=== PATIENT | male | born 1970 | race Caucasian/White ===

== ENCOUNTER 2018-05-16 12:52 | Observation (INO) | payer SELFPAY ==
[~2018-05-16 12:52] MED LIST: DEXAMETHASONE SOD PHOSPHATE INJ 4 MG/1 ML VIAL ONE; GLYCOPYRROLATE 1 MG/5 ML SYRINGE ONE; NEOSTIGMINE METHYLSULFATE 10 MG/10 ML VIAL ONE; ONDANSETRON HCL INJ/PF 4 MG/2 ML SDV ONE; ROCURONIUM BROMIDE INJ 50 MG/5 ML VIAL IV ONE; SUCCINYLCHOLINE CHLORIDE INJ 200 MG/10 ML VIAL ONE
--- NOTE | 2018-05-16 13:38 | EKG REPORT ---
SEVERITY:- OTHERWISE NORMAL ECG - SINUS RHYTHM VENTRICULAR PREMATURE COMPLEX : Confirmed by: Isauro Reddy MD 16-May-2018 13:37:22
[2018-05-16] MEDS ORDERED: NORMAL SALINE 1000 ML 1,000 ML IV ONE ×2 (13:44→14:49)
[2018-05-16 13:47] LABS: ABSOLUTE BASOPHILS # (AUTO) 0.1 10^3/uL (0.0-0.2); ABSOLUTE EOSINOPHILS # (AUTO) 0.3 10^3/uL (0.0-0.6); ABSOLUTE LYMPHOCYTES (AUTO) 2.3 10^3/uL (0.5-4.7); ABSOLUTE MONOCYTES (AUTO) 0.6 10^3/uL (0.1-1.4); BASOPHILS % (AUTO) 0.7 % (0-2); EOSINOPHILS % (AUTO) 2.2 % (0-6); HEMATOCRIT 41.5 % (37.9-51.0); HEMOGLOBIN 14.7 g/dL (13.5-17.0); LYMPHOCYTES % (AUTO) 18.4 % (13-45); MEAN CORPUSCULAR HEMOGLOBIN 34.6 pg (27.0-33.4); MEAN CORPUSCULAR HGB CONC 35.5 g/dL (32.0-36.0); MEAN CORPUSCULAR VOLUME 98 fl (80-97); MONOCYTES % (AUTO) 5.1 % (3-13); PLATELET COUNT 296 10^3/uL (150-450); RED BLOOD COUNT 4.26 10^6/uL (4.35-5.55); RED CELL DISTRIBUTION WIDTH 13.4 % (11.5-14.0); SEGMENTED NEUTROPHILS % (AUTO) 73.6 % (42-78); TOTAL CELLS COUNTED % (AUTO) 100 %; WHITE BLOOD COUNT 12.3 10^3/uL (4.0-10.5)
[2018-05-16 14:08] LABS: ALANINE AMINOTRANSFERASE 142 U/L (21-72); ALBUMIN 4.8 g/dL (3.5-5.0); ALKALINE PHOSPHATASE 145 U/L (38-126); ANION GAP 9 (5-19); ASPARTATE AMINO TRANSFERASE 79 U/L (17-59); BILIRUBIN,DIRECT 0.3 mg/dL (0.0-0.4); BILIRUBIN,TOTAL 0.7 mg/dL (0.2-1.3); BLOOD UREA NITROGEN 19 mg/dL (7-20); CALCIUM 10.2 mg/dL (8.4-10.2); CARBON DIOXIDE 32 mmol/L (22-30); CHLORIDE 95 mmol/L (98-107); CREATINE KINASE 695 U/L (55-170); GLUCOSE 123 mg/dL (75-110); LIPASE 48.5 U/L (23-300); POTASSIUM 3.8 mmol/L (3.6-5.0); SODIUM 136.4 mmol/L (137-145); TOTAL PROTEIN 7.6 g/dL (6.3-8.2)
[2018-05-16 14:15] LABS: APPEARANCE,URINE CLEAR; BILIRUBIN,URINE NEGATIVE (NEGATIVE); COLOR,URINE YELLOW; GLUCOSE, URINE NEGATIVE (NEGATIVE); KETONES,URINE NEGATIVE (NEGATIVE); LEUKOCYTE ESTERASE,URINE NEGATIVE (NEGATIVE); NITRITE,URINE NEGATIVE (NEGATIVE); PROTEIN,URINE NEGATIVE (NEGATIVE); URINE SPECIFIC GRAVITY 1.018; UROBILINOGEN,URINE NEGATIVE mg/dL (<2.0)
[2018-05-16 14:20] LABS: CREATINE KINASE MB 6.87 ng/mL (<4.55)
[2018-05-16 14:22] LABS: TROPONIN I < 0.012 ng/mL
--- NOTE | 2018-05-16 14:22 | RADIOLOGY REPORT (SQ) ---
EXAM DESCRIPTION: CHEST 2 VIEWS COMPLETED DATE/TIME: 05/16/2018 2:13 pm REASON FOR STUDY: chest pain COMPARISON: 10/15/2011. EXAM PARAMETERS: NUMBER OF VIEWS: two views TECHNIQUE: Digital Frontal and Lateral radiographic views of the chest acquired. RADIATION DOSE: NA LIMITATIONS: none FINDINGS: LUNGS AND PLEURA: No opacities, masses or pneumothorax. No pleural effusion. MEDIASTINUM AND HILAR STRUCTURES: No masses or contour abnormalities. HEART AND VASCULAR STRUCTURES: Heart normal size. No evidence for failure. BONES: No acute findings. HARDWARE: None in the chest. OTHER: No other significant finding. IMPRESSION: NO ACUTE RADIOGRAPHIC FINDING IN THE CHEST. TECHNICAL DOCUMENTATION: JOB ID: [id number] [employer]- All Rights Reserved Reading location - IP/workstation name: [email or web address]
[2018-05-16 14:33] LABS: URINE AMPHETAMINES SCREEN NEGATIVE; URINE BARBITURATES SCREEN NEGATIVE; URINE BENZODIAZEPINES SCREEN UNCONFIRMED POSITIVE; URINE COCAINE SCREEN NEGATIVE; URINE MARIJUANA (THC) SCREEN NEGATIVE; URINE METHADONE SCREEN NEGATIVE; URINE PHENCYCLIDINE SCREEN NEGATIVE
[2018-05-16] MEDS ORDERED: ONDANSETRON HCL INJ/PF 4 MG/2 ML SDV IV ONE (15:13)
--- NOTE | 2018-05-16 17:27 | RADIOLOGY REPORT (SQ) ---
EXAM DESCRIPTION: U/S ABDOMEN LIMITED W/O DOP COMPLETED DATE/TIME: 05/16/2018 5:15 pm REASON FOR STUDY: ruq epi pain elevated lfts COMPARISON: Right upper quadrant ultrasound 09/01/2008 CT abdomen pelvis 09/02/2008 TECHNIQUE: Dynamic and static grayscale images acquired of the abdomen and recorded on PACS. Additio nal selected color Doppler and spectral images recorded. LIMITATIONS: Body habitus, bowel gas FINDINGS: PANCREAS: Not visualized due to midline bowel gas LIVER: Echogenic from diffuse fatty infiltration of the liver. Difficult to penetrate with the ultra sound energy from fatty infiltration. Focal sparing around the gallbladder fossa LIVER VASCULATURE: Normal directional flow of the main portal vein and hepatic veins. GALLBLADDER: Multiple stones are present. No gallbladder wall thickening or pericholecystic fluid. Negative sonographic Abdi's sign ULTRASOUND-DETECTED ABDI'S SIGN: Negative. INTRAHEPATIC DUCTS AND COMMON DUCT: CBD and intrahepatic ducts normal caliber. No filling defects. INFERIOR VENA CAVA: Not well seen AORTA: Not well seen RIGHT KIDNEY: Normal size. Normal echogenicity. No solid or suspicious masses. No hydronephrosis. No calcifications. PERITONEAL AND RIGHT PLEURAL SPACE: No ascites or effusions. OTHER: No other significant findings. IMPRESSION: Gallstones in the gallbladder, without gallbladder wall thickening or pericholecystic fl uid. Negative sonographic Abdi's sign Fatty liver with focal sparing at the gallbladder fossa Nonvisualization of the pancreas abdominal aorta and vena cava related to midline bowel gas TECHNICAL DOCUMENTATION: JOB ID: [id number] [email or web address]- All Rights Reserved Reading location - IP/workstation name: [email or web address]
--- NOTE | 2018-05-16 18:05 | ER Document Report ---
ED General - General Chief Complaint: Chest Pain Stated Complaint: CHEST PAIN Time Seen by Provider: 05/16/18 13:02 TRAVEL OUTSIDE OF THE [place] IN LAST 30 DAYS: No - HPI Patient complains to provider of: Chest pain epigastric pain nausea Notes: Patient coming in for worsening chest pain epigastric nausea. Patient states this morning had a egg omelette from [employer] and doing felt slightly nauseous continued to feel bad developed into chest pain never came to the ER for further evaluation. Patient denies any past medical history denies any allergies to medications. Patient denies any trauma. Patient denies any diarrhea or fever. Patient otherwise risk of a upon my evaluation. - Related Data Allergies/Adverse Reactions: No Known Allergies Allergy (Unverified 05/16/18 17:27) Past Medical History - Social History Smoking Status: Current Every Day Smoker Patient has suicidal ideation: No Patient has homicidal ideation: No Pulmonary Medical History: Reports: Hx COPD Renal/ Medical History: Denies: Hx Peritoneal Dialysis - Immunizations Hx Diphtheria, Pertussis, Tetanus Vaccination: Yes Review of Systems - Review of Systems Constitutional: No symptoms reported EENT: No symptoms reported Cardiovascular: Chest pain Respiratory: No symptoms reported Gastrointestinal: Abdominal pain Genitourinary: No symptoms reported Male Genitourinary: No symptoms reported Musculoskeletal: No symptoms reported Skin: No symptoms reported Hematologic/Lymphatic: No symptoms reported Neurological/Psychological: No symptoms reported -: Yes All other systems reviewed and negative Physical Exam - Vital signs Interpretation: Normal - General General appearance: Appears well, Alert - HEENT Head: Normocephalic, Atraumatic Eyes: Normal Pupils: PERRL - Respiratory Respiratory status: No respiratory distress Chest status: Nontender Breath sounds: Normal Chest palpation: Normal - Cardiovascular Rhythm: Regular Heart sounds: Normal auscultation Murmur: No - Abdominal Inspection: Obese Distension: No distension Bowel sounds: Normal Tenderness: Tender - Epigastric tenderness some right upper quadrant tenderness Organomegaly: No organomegaly - Back Back: Normal, Nontender - Extremities General upper extremity: Normal inspection, Nontender, Normal color, Normal ROM, Normal temperature General lower extremity: Normal inspection, Nontender, Normal color, Normal ROM, Normal temperature, Normal weight bearing. No: Geena's sign - Neurological Neuro grossly intact: Yes Cognition: Normal Orientation: AAOx4 Raman Coma Scale Eye Opening: Spontaneous Raman Coma Scale Verbal: Oriented [place] Coma Scale Motor: Obeys Commands [place] Coma Scale Total: 15 Speech: Normal Motor strength normal: LUE, RUE, LLE, RLE Sensory: Normal - Psychological Associated symptoms: Normal affect, Normal mood - Skin Skin Temperature: Warm Skin Moisture: Dry Skin Color: Normal Course - Re-evaluation Re-evalutation: 05/16/18 18:06 Patient with elevation of LFTs ultrasound was performed showing gallstones will have surgery come and evaluate the patient. 05/16/18 18:13 Discussed with the surgeon will cancel the CT scan at this time will admit the patient for further evaluation. - Laboratory Result Diagrams: 05/16/18 13:31 05/16/18 13:31 Laboratory results interpreted by me: 05/16/18 05/16/18 05/16/18 13:31 13:31 13:31 WBC 12.3 H RBC 4.26 L MCV 98 H MCH 34.6 H Absolute Neutrophils 9.0 H Sodium 136.4 L Chloride 95 L Carbon Dioxide 32 H Glucose 123 H AST 79 H ALT 142 H Alkaline Phosphatase 145 H Creatine Kinase 695 H CK-MB (CK-2) 6.87 H Discharge - Discharge Clinical Impression: Symptomatic cholelithiasis Condition: Good Disposition: ADMITTED OBSERVATION Admitting Provider: Surgicalist - [facility] Admitted: OR
[2018-05-16] MEDS ORDERED: AMPICILLIN SOD/SULBACTAM 3 GM VIAL IV ONE (18:14)
--- NOTE | 2018-05-16 18:17 | PDOC H&P ---
History of Present Illness Patient complains of: Abdominal pain History of Present Illness: JESSICA GLOVER is a 47 year old male Who presents to the emergency department complaint of acute onset abdominal pain approximately 11:00 today. Pain was unrelenting, and he was brought in by ground rescue, given nitroglycerin without relief. He was evaluated in the emergency department where he is found to have gallstones by ultrasonography, no common duct dilation. He received IV fluids, and a CT scan of the abdomen was about to be performed. Surgery was consulted, patient evaluated, and advised admission. Admits to having several previous episodes of abdominal pain, postprandial gallbladder disease in the patient's mother Past Medical History Past Medical History: Hypertension Pulmonary Medical History: Reports: Chronic Obstructive Pulmonary Disease (COPD) Past Surgical History Past Surgical History: Reports: None Social History Smoking Status: Current Every Day Smoker Frequency of Alcohol Use: Occasional Family History Parental Family History Reviewed: Yes Children Family History Reviewed: Yes Sibling(s) Family History Reviewed.: Yes Medication/Allergy Allergies/Adverse Reactions: No Known Allergies Allergy (Unverified 05/16/18 17:27) Review of Systems Eyes: ABSENT: visual disturbances Ears: ABSENT: hearing changes Cardiovascular: ABSENT: chest pain, dyspnea on exertion, edema, orthropnea, palpitations Respiratory: ABSENT: cough, hemoptysis Gastrointestinal: PRESENT: as per HPI, other - Patient denies diarrhea or constipation. Integumentary: ABSENT: rash, wounds Neurological: ABSENT: abnormal gait, abnormal speech, confusion, dizziness, focal weakness, syncope Psychiatric: ABSENT: anxiety, depression, homidical ideation, suicidal ideation Physical Exam Vital Signs: Intake & Output 05/15/18 05/16/18 05/17/18 06:59 06:59 06:59 Intake Total 1000 Balance 1000 Weight 111.584 kg General appearance: PRESENT: no acute distress Head exam: PRESENT: atraumatic Eye exam: PRESENT: EOMI Mouth exam: PRESENT: dry mucosa Neck exam: PRESENT: full ROM Respiratory exam: PRESENT: rhonchi Cardiovascular exam: PRESENT: RRR Pulses: PRESENT: normal carotid pulses, normal radial pulses, normal femoral pulses GI/Abdominal exam: PRESENT: other - Soft, but tender in the right upper quadrant to moderate palpation. Moderate distention. Gentrourinary exam: PRESENT: other - No groin hernias Extremities exam: PRESENT: full ROM Musculoskeletal exam: PRESENT: ambulatory Neurological exam: PRESENT: awake, oriented to person, oriented to place, oriented to time, oriented to situation Psychiatric exam: PRESENT: appropriate affect Results Laboratory Results: 05/16/18 13:31 05/16/18 13:31 05/16/18 05/16/18 05/16/18 13:31 13:31 13:49 WBC 12.3 H RBC 4.26 L Hgb 14.7 Hct 41.5 MCV 98 H MCH 34.6 H MCHC 35.5 RDW 13.4 Plt Count 296 Seg Neutrophils % 73.6 Lymphocytes % 18.4 Monocytes % 5.1 Eosinophils % 2.2 Basophils % 0.7 Absolute Neutrophils 9.0 H Absolute Lymphocytes 2.3 Absolute Monocytes 0.6 Absolute Eosinophils 0.3 Absolute Basophils 0.1 Sodium 136.4 L Potassium 3.8 Chloride 95 L Carbon Dioxide 32 H Anion Gap 9 BUN 19 Creatinine 0.95 Est GFR ( Amer) > 60 Est GFR (Non-Af Amer) > 60 Glucose 123 H Calcium 10.2 Total Bilirubin 0.7 AST 79 H ALT 142 H Alkaline Phosphatase 145 H Total Protein 7.6 Albumin 4.8 Lipase 48.5 Urine Color YELLOW Urine Appearance CLEAR Urine pH 6.0 Ur Specific [place] 1.018 Urine Protein NEGATIVE Urine Glucose (UA) NEGATIVE Urine Ketones NEGATIVE Urine Blood NEGATIVE Urine Nitrite NEGATIVE Ur Leukocyte Esterase NEGATIVE Urine WBC (Auto) 1 Urine RBC (Auto) 1 05/16/18 05/16/18 13:31 13:31 Creatine Kinase 695 H CK-MB (CK-2) 6.87 H Troponin I < 0.012 Impressions: Chest X-Ray 05/16/18 00:00 IMPRESSION: NO ACUTE RADIOGRAPHIC FINDING IN THE CHEST. Abdomen Ultrasound 05/16/18 14:48 IMPRESSION: Gallstones in the gallbladder, without gallbladder wall thickening or pericholecystic fluid. Negative sonographic Abdi's sign Fatty liver with focal sparing at the gallbladder fossa Nonvisualization of the pancreas abdominal aorta and vena cava related to midline bowel gas Assessment & Plan - Diagnosis (1) Cholecystitis Is this a current diagnosis for this admission?: Yes Plan: Impression: Acute cholecystitis cholelithiasis in smoker, symptomatic Medications: 1. Admit, IV fluids, n.p.o. 2. Set patient up for interval laparoscopic, possible open cholecystectomy, 1 hour, possible drain, risk benefits and alternatives to the planned procedure explained to patient. Expressed understanding we will proceed. (2) Smoker Is this a current diagnosis for this admission?: Yes (3) Gallstone Is this a current diagnosis for this admission?: Yes - Time Time Spent: 30 to 50 Minutes Critical Time spent with patient: Less than 15 minutes Smoking Cessation Education: 3 to 10 minutes Medications reviewed and adjusted accordingly: Yes Anticipated discharge: Home - Inpatient Certification Based on my medical assessment, after consideration of the patient's comorbidities, presenting symptoms, or acuity I expect that the services needed warrant INPATIENT care.: Yes I certify that my determination is in accordance with my understanding of Medicare's requirements for reasonable and necessary INPATIENT services [42 CFR 412.3e].: Yes Medical Necessity: Need For IV Fluids, Need for Pain Control, Need for IV Anti biotics, Need for Surgery
[2018-05-16] MEDS ORDERED: FENTANYL CITRATE INJ/PF 100 MCG/2 ML AMPUL ONE ×2 (18:20→20:00)
[2018-05-16] MEDS ORDERED: BUPIVACAINE HCL 0.25 % INJ/PF (2.5 MG/1 ML) 30 ML VIAL ONE (18:20)
[2018-05-16] MEDS ORDERED: MORPHINE SULFATE 10 MG/ML INJ ONE (18:21)
[2018-05-16] MEDS ORDERED: PROPOFOL INJ 200 MG/20 ML VIAL IV ONE (18:21)
[2018-05-16] MEDS ORDERED: MIDAZOLAM 2 MG/2 ML INJ ONE (18:21)
[2018-05-16] MEDS ORDERED: FENTANYL CITRATE INJ/PF 100 MCG/2 ML AMPUL IV PRN ×3 (19:21)
[2018-05-16] MEDS ORDERED: MORPHINE SULFATE 10 MG/ML INJ IV PRN (19:21)
[2018-05-16] MEDS ORDERED: DIPHENHYDRAMINE HCL 50 MG/ML VIAL IV PRN (19:21)
[2018-05-16] MEDS ORDERED: MEPERIDINE HCL/PF INJ 25 MG/1 ML DISP.SYRIN IV PRN (19:21)
[2018-05-16] MEDS ORDERED: PROMETHAZINE HCL INJ 25 MG/1 ML VIAL IV PRN ×2 (19:21)
[2018-05-16] MEDS ORDERED: ONDANSETRON HCL INJ/PF 4 MG/2 ML SDV IV PRN ×2 (20:51→20:52)
--- NOTE | 2018-05-16 21:01 | Operative Report ---
Operative Report DATE OF SURGERY: 05/16/18 PREOPERATIVE DIAGNOSIS: Acute cholecystitis with cholelithiasis POSTOPERATIVE DIAGNOSIS: Same with purulent cholecystitis OPERATION: 1. Laparoscopic cholecystectomy. 2. Extremely difficult modifier due to acute inflammation, exposure difficulty. 3. Drain subhepatic space SURGEON: CANDI KAPADIA ANESTHESIA: GA TISSUE REMOVED OR ALTERED: 1 gallbladder fragmented with multiple gallstones COMPLICATIONS: None ESTIMATED BLOOD LOSS: 100 cc INTRAOPERATIVE FINDINGS: See below PROCEDURE: After obtaining informed consent, the patient was taken to the operating room. General Anesthesia was induced; the arms were extended, and the abdomen was exp osed, and prepped and draped in a sterile fashion. Instrumentation was set up for laparoscopic cholecystectomy. Surgical plan and surgical timeout were conducted. A vertical incision was made above the umbilicus, and a verres needle was inserted uneventfully into the peritoneal cavity. Pneumoperitoneum was established. The verres needle was removed and a 5 mm trocar was inserted and a 5 mm flexible laparoscope was inserted. Visualization of the peritoneal cavity confirmed safe uneventful entry. Under direct visualization 3 additional 5 mm ports were established, one in the subxiphoid position and second in the subcostal position. The findings were significant for acutely inflamed, distended gallbladder with a neurologically fused gallbladder to the liver. Multiple photos were taken. The gallbladder was aspirated of approximately 60 cc of thick pale bile. We initially placed spurs on the gallbladder fundus and infundibulum, but because of poor exposure primarily due to the persisting large size of the gallbladder, we felt that a top down approach was indicated. Therefore the graspers were repositioned, and the embryo logically fused gallbladder and liver interface was opened up with the hook cautery. We now proceeded for the next 45 minutes to take down the gallbladder from the fundus down to the infundibulum. The next hour was spent dissecting out the lower t hird of the gallbladder. The gallbladder was actually amputated longterm through the removal from the liver bed with scissors. The cystic artery was identified while taking the gallbladder off of the liver bed. It was clipped twice proximally. [place] use of electrocautery, irrigation and suction was required to facilitate the dissection. We did have good help and we did make steady progress therefore no intent for conversion was entertained. We did place 1/5 port in the subcostal position closer to the epigastric region. This was assisted with liver retraction using the fan, as well as an angulated fan to hold down the omentum. Eventually we got down to the infundibulum of the gallbladder with multiple photos taken. We used hook cautery dissection to clear the remaining fibrotic a ttachments to the shoulder which was quite abrupt between the infundibulum and the cystic duct. Therefore we left a small final of bladder consistent with the gallbladder neck. Once this was all amputated, with the spillage of stones into the subhepatic space, we were able to visualize the remnant 1-1/2 cm segment of gallbladder neck. We now secured the cystic duct-gallbladder neck with 2-0 PDS Endoloop sutures. We took multiple photographs and there was no evidence of leaking from this We now spent another 20 minutes mopping the loose ends by first placing an Endobag to the patient's supraumbilical port site, then retrieving both gallbladder fragments, as well as multiple small stones. The gallbladder, stones and Endobag were brought out in their entirety through the supraumbilical port site incision after opening it slightly with a Brenda clamp. We returned the peritoneal cavity irrigated out with 2 L of saline, manipulating the subhepatic space in the right lobe of the liver to ensure all identifiable stones were extracted from the patient. A large Roberto drain was placed through the subcostal port and secured in position with 2-0 Prolene suture. The tip of the drain ending in the subhepatic space. We returned to the peritoneal cavity check for bleeding, and evidence of bile leak, and there was none. The supraumbilical port site incision was closed with a 0 Vicryl suture; the subcutaneous tissue was then anesthetized with quarter percent Marcaine Sponge and needle counts are correct. 5 mm port wounds closed with 3-0 Vicryl suture, benzoin and Steri-Strips. The patient was extubated, and taken to the recovery room in stable condition. Extremely difficult modifier was because of increased time,, approximately total time 90 minutes, as well as difficulty exposure difficulty with enlarged gallbladder.
[2018-05-16] MEDS ORDERED: KETOROLAC TROMETHAMINE 10 MG TABLET ONE (23:07)
[2018-05-16] MEDS: ACETAMINOPHEN INJ/PF 1000 MG/100 ML SDV IV SCH (23:34)
[2018-05-16] MEDS: KETOROLAC TROMETHAMINE 10 MG TABLET PO PRN (23:43)
[2018-05-17] MEDS: AMPICILLIN SODIUM/SULBACTAM NA 3 GM in NORMAL SALINE 100 ML IV SCH ×2 (02:31→09:34)
[2018-05-17] MEDS ORDERED: ACETAMINOPHEN 1,000 MG/100 ML RTUPB IV ONE (04:45)
[2018-05-17] MEDS: ACETAMINOPHEN INJ/PF 1000 MG/100 ML SDV IV SCH ×2 (05:24→11:32)
[2018-05-17] MEDS: KETOROLAC TROMETHAMINE 10 MG TABLET PO PRN (09:34)
[2018-05-17 09:55] LABS: HEMATOCRIT 39.4 % (37.9-51.0); HEMOGLOBIN 13.7 g/dL (13.5-17.0); MEAN CORPUSCULAR HGB CONC 34.9 g/dL (32.0-36.0); MEAN CORPUSCULAR VOLUME 98 fl (80-97); PLATELET COUNT 245 10^3/uL (150-450); RED BLOOD COUNT 4.04 10^6/uL (4.35-5.55); RED CELL DISTRIBUTION WIDTH 13.5 % (11.5-14.0); WHITE BLOOD COUNT 13.2 10^3/uL (4.0-10.5)
[2018-05-17] MEDS ORDERED: DOCUSATE SODIUM 100 MG CAPSULE PO SCH (10:00)
[2018-05-17 10:21] LABS: ALANINE AMINOTRANSFERASE 168 U/L (21-72); ALBUMIN 3.9 g/dL (3.5-5.0); ALKALINE PHOSPHATASE 111 U/L (38-126); ASPARTATE AMINO TRANSFERASE 111 U/L (17-59); BILIRUBIN,DIRECT 0.4 mg/dL (0.0-0.4); BILIRUBIN,TOTAL 1.2 mg/dL (0.2-1.3); TOTAL PROTEIN 6.2 g/dL (6.3-8.2)
[2018-05-17 12:54] VITALS: BP 111/76
--- NOTE | 2018-05-17 13:44 | PDOC PROGRESS REPORT ---
Subjective Progress Note for:: 05/17/18 Reason For Visit: ACUTE CHOLECYSTITIS AND CHOLELITHIASIS Physical Exam Vital Signs: Temp Pulse Resp BP Pulse Ox 100.3 F 106 H 24 H 111/76 94 05/17/18 12:36 05/17/18 12:36 05/17/18 12:36 05/17/18 12:36 05/17/18 12:36 Intake & Output 05/16/18 05/17/18 05/18/18 06:59 06:59 06:59 Intake Total 5660 1100 Output Total 3450 Balance 2210 1100 Weight 111.6 kg General appearance: PRESENT: morbidly obese Eye exam: PRESENT: EOMI, PERRLA Ear exam: PRESENT: other Mouth exam: PRESENT: moist Teeth exam: PRESENT: other Respiratory exam: PRESENT: clear to auscultation lisa Cardiovascular exam: PRESENT: RRR Pulses: PRESENT: normal radial pulses, normal femoral pulses GI/Abdominal exam: PRESENT: soft - min pain, arti serous Extremities exam: PRESENT: full ROM Musculoskeletal exam: PRESENT: ambulatory Neurological exam: PRESENT: alert, altered, awake Psychiatric exam: PRESENT: appropriate affect Skin exam: PRESENT: dry, intact, warm. ABSENT: cyanosis, rash Results Laboratory Results: 05/17/18 09:18 05/16/18 13:31 05/16/18 05/16/18 05/16/18 13:31 13:31 13:49 WBC 12.3 H RBC 4.26 L Hgb 14.7 Hct 41.5 MCV 98 H MCH 34.6 H MCHC 35.5 RDW 13.4 Plt Count 296 Seg Neutrophils % 73.6 Lymphocytes % 18.4 Monocytes % 5.1 Eosinophils % 2.2 Basophils % 0.7 Absolute Neutrophils 9.0 H Absolute Lymphocytes 2.3 Absolute Monocytes 0.6 Absolute Eosinophils 0.3 Absolute Basophils 0.1 Sodium 136.4 L Potassium 3.8 Chloride 95 L Carbon Dioxide 32 H Anion Gap 9 BUN 19 Creatinine 0.95 Est GFR ( Amer) > 60 Est GFR (Non-Af Amer) > 60 Glucose 123 H Calcium 10.2 Total Bilirubin 0.7 AST 79 H ALT 142 H Alkaline Phosphatase 145 H Total Protein 7.6 Albumin 4.8 Lipase 48.5 Urine Color YELLOW Urine Appearance CLEAR Urine pH 6.0 Ur Specific [place] 1.018 Urine Protein NEGATIVE Urine Glucose (UA) NEGATIVE Urine Ketones NEGATIVE Urine Blood NEGATIVE Urine Nitrite NEGATIVE Ur Leukocyte Esterase NEGATIVE Urine WBC (Auto) 1 Urine RBC (Auto) 1 05/17/18 05/17/18 09:18 09:18 WBC 13.2 H RBC 4.04 L Hgb 13.7 Hct 39.4 MCV 98 H MCH 34.0 H MCHC 34.9 RDW 13.5 Plt Count 245 Seg Neutrophils % Lymphocytes % Monocytes % Eosinophils % Basophils % Absolute Neutrophils Absolute Lymphocytes Absolute Monocytes Absolute Eosinophils Absolute Basophils Sodium Potassium Chloride Carbon Dioxide Anion Gap BUN Creatinine Est GFR ( Amer) Est GFR (Non-Af Amer) Glucose Calcium Total Bilirubin 1.2 AST 111 H ALT 168 H Alkaline Phosphatase 111 Total Protein 6.2 L Albumin 3.9 Lipase Urine Color Urine Appearance Urine pH Ur Specific [place] Urine Protein Urine Glucose (UA) Urine Ketones Urine Blood Urine Nitrite Ur Leukocyte Esterase Urine WBC (Auto) Urine RBC (Auto) 05/16/18 05/16/18 13:31 13:31 Creatine Kinase 695 H CK-MB (CK-2) 6.87 H Troponin I < 0.012 Impressions: Chest X-Ray 05/16/18 00:00 IMPRESSION: NO ACUTE RADIOGRAPHIC FINDING IN THE CHEST. Abdomen Ultrasound 05/16/18 14:48 IMPRESSION: Gallstones in the gallbladder, without gallbladder wall thickening or pericholecystic fluid. Negative sonographic Abdi's sign Fatty liver with focal sparing at the gallbladder fossa Nonvisualization of the pancreas abdominal aorta and vena cava related to midline bowel gas Assessment & Plan - Plan Summary Plan Summary: pt doing relatively well this am wants to go home had low grade temp to 100.6 vital stable had not taken po as yet had not been out of bed as yet pt will start ambulating now and start taking po if he feels better later today, could be discharged home
--- NOTE | 2018-05-17 13:52 | Discharge Summary ---
Discharge Summary (SDC) - Discharge Final Diagnosis: cholecystitis Date of Surgery: 05/16/18 Condition: Good Discharge Diet: As Tolerated Report the Following to Your Physician Immediately: Nausea, Vomiting, Increase in Pain, Fever over 101 Degrees
[2018-05-17] MEDS ORDERED: NORMAL SALINE 500 ML IV ONE (14:30)
--- NOTE | 2018-05-17 16:39 | DISCHARGE SUMMARY E ---
Discharge Summary NAME: JESSICA GLOVER : 1970 AGE: 47Y ADMITTED: 05/16/2018 DISCHARGED: 05/17/2018 ADMISSION DIAGNOSIS: Cholecystitis DISCHARGE DIAGNOSIS: Cholecystitis. OPERATIONS AND PROCEDURES: Laparoscopic cholecystectomy. REASON FOR HOSPITALIZATION AND HOSPITAL COURSE: This is a 47-year-old male who presented to the emergency room yesterday with acute onset of abdominal pain. The pain was unrelenting and he was brought in by ground rescue. He had given himself nitroglycerin without relieve. In the emergency department he was evaluated and he was found to have gallstones on an ultrasound. No dilated duct. He received IV fluids, a CT scan of the abdomen which was convincing for cholecystitis. He was taken to the operating room where he underwent a laparoscopic cholecystectomy. At that time he was noted to have acute cholecystitis. Postoperatively he had a benign routine course. His white count was slightly elevated postop, on postop day one at 13.2. He had a drain left in surgery, which is removed this morning with only serous output. He is now up, ambulating, tolerating a diet. He has a low grade temperature of 100.3, but he requested to be discharged home and after evaluation we feel there is no increased risk for discharge home at this time. He received IV antibiotics throughout his hospital course and at this point we will discharge him on postoperative pain meds and he will follow up in 1 week after discharge for surgical follow up. DISCHARGE MEDICATIONS: Include tramadol 50 mg 1 p.o. q.6 p.r.n. pain. DISABILITY: Is expected to be one week. DISPOSITION: He is discharged home. DICTATING PHYSICIAN: TONI NARVAEZ M.D. [id number] PHY#: [id number] ID: [id number] JOB#: [id number] ACCT: [id number] cc:Ifeanyi REYNAGA M.D. >
== END 2018-05-17 16:13 | disposition home or self-care (01) ==
LOC: ER 12:52 → EH 18:18 → 2N 22:05
PROVIDERS: ADMIT Surgery; ATTEND Surgery
PROC: 0FT44ZZ Resection of Gallbladder, Percutaneous Endoscopic Approach (ICD-10-PCS; 2018-05-16)
PROC: HZ31ZZZ Individual Counseling for Substance Abuse Treatment, Behavioral (ICD-10-PCS; principal; 2018-05-16 19:00)
DX: K80.12 Calculus of gallbladder with acute and chronic cholecystitis without obstruction (principal); R50.82 Postprocedural fever; F17.200 Nicotine dependence, unspecified, uncomplicated; E66.9 Obesity, unspecified
CPT/HCPCS: 36415; 71046; 76705; 790; 80053; 80076; 80307; 81001; 82550; 82553; 83690; 84484; 85025; 85027; 85379; 88304; 93005; 93010; 96361; 96374; 99285; J0131; J0295; J0330; J1100; J2250; J2270; J2405; J2704; J3010; J3490; J7030; J7040